=== PATIENT | male | born 1980 | race Two or more races ===

== ENCOUNTER 2023-03-29 12:21 | Emergency (ER) | payer OTHER ==
[~2023-03-29] VITALS: Ht 172.7 cm; Wt 77.1 kg
[2023-03-29 17:39] LABS: HEMATOCRIT 40.9 % (39.0-48.0); HEMOGLOBIN 13.9 g/dL (13-16.00); MEAN CELL VOLUME 84.4 fL (80.0-100.00); MEAN CORPUSCULAR HEMOGLOBIN 28.7 pg (27.00-32.0); PLATELET COUNT 140 K/uL (150-450); RED BLOOD COUNT 4.84 M/uL (4.00-6.00)
[2023-03-29 17:57] LABS: CALCIUM 8.8 mg/dL (8.5-10.1); CREATININE SERUM 0.96 mg/dL (0.70-1.30); GFR 85.9; POTASSIUM 3.38 mEq/L (3.5-5.1)
== END 2023-03-29 19:05 | disposition home or self-care (01) ==
LOC: ER 12:21
PROVIDERS: General Practice
DX: R53.81 Other malaise (principal); Z20.822 Contact with and (suspected) exposure to COVID-19; Z88.0 Allergy status to penicillin